=== PATIENT | male | born 1980 | race African-American/Black ===

== ENCOUNTER 2017-02-13 13:00 | Inpatient (IN) | payer OTHER ==
--- NOTE | ~2017-02-13 | PA ---
Unit #: [id number] #: [id number] Patient: SHARLA CHAND [id number] [facility] [address] [place] [address] [id number] MR#: [id number] NAME: SHARLA CHAND. ROOM: P115 Age: 36 Sex: M Admission Date: 02/13/2017 : 1980 Date of Assessment: Attending Physician: Jeffery Gonzalez M.D. Admitting Physician: Jeffery Gonzalez M.D. PSYCHIATRIC ASSESSMENT DATE OF SERVICE 02/13/2017. IDENTIFYING DATA Mr. Chand is a 36-year-old male, who is a resident of [place], [place], and was self-referred to the hospital on a voluntary basis. CHIEF COMPLAINT "I need detox services." HISTORY OF PRESENT ILLNESS Mr. Chand is a 36-year-old male, who came to the hospital stating that for the past 2 to 3 years he has been consuming half a gram of heroin a day and 2 to 3 beers and Xanax bars and that three days ago, a friend came over and he tried crack cocaine for the first time, that he is ready to get clean and stated that he has not used anything in the last 3 days and he cannot recall significant sobriety. Upon evaluation by me, the patient was seen to be in no acute distress or discomfort. He was dry heaving and had a vomit tray and has already received the injections of Phenergan, but has not been able to feel better and does report increasing depression, anxiety, irritability, restlessness, feelings of hopelessness and helplessness, but denies any suicidal ideations, intent, or plan. SUBSTANCE ABUSE HISTORY The patient reports history of alcohol, cocaine, opioids, amphetamines, and benzodiazepine abuse, and currently, he reports opioids to be his drug of choice. PAST PSYCHIATRIC HISTORY The patient has not had any prior inpatient or outpatient psychiatric treatment. Review of the medical records indicate that currently he is not active in treatment program, is not seeing a psychiatrist, and is not taking any psychotropic medications. PAST MEDICAL HISTORY No acute or chronic medical illnesses. ALLERGIES Tramadol and latex. CURRENT MEDICATIONS None. Unit #: [id number] #: [id number] Patient: SHARLA CHAND PERSONAL AND SOCIAL HISTORY A 36-year-old male, who reports that he is single, unemployed, and essentially homeless and has poor social support system. MENTAL STATUS EXAMINATION Young male who was casually dressed with fair personal hygiene, appears to be in no acute distress or discomfort. He was awake and alert on interaction with intact orientation. His mood was anxious and depressed with a congruent affect. His speech was slow and restricted in content. His thought processes were disorganized with some looseness of associations and flight of ideas. He denies any suicidal or homicidal ideations. His insight and judgment significantly impaired. DIAGNOSTIC IMPRESSION Psychiatric: Opioid dependence, moderate and acute withdrawals; alcohol dependence, moderate and acute withdrawals; benzodiazepine abuse, moderate; alcohol-induced mood disorder. Medical: None. Stressors: Moderate psychosocial stressors. TREATMENT PLAN 1. The patient has presented with a history of mood disorder and substance abuse and has been decompensating and will need inpatient hospitalization for safety and stabilization. We will start him back on his home medications. We will adjust the medications and monitor response. 2. Supportive therapy was provided to the patient. 3. Safe, structured, and nourishing environment will be provided. ESTIMATED LENGTH OF STAY 4 to 5 days. ABILITY TO HELP SELF Limited. WILLINGNESS TO HELP SELF The patient appears to be willing to help self. STRENGTHS 1. Communicative. 2. Cooperative. PROBLEMS 1. Chronic dysphoric symptoms. 2. Chronic chemical dependency. 3. Poor social support system. DISCHARGE CRITERIA This will be contingent upon the patient's ability to show resolution of his depression and anxiety and his ability to go through detox without having any significant withdrawal symptoms as well as his ability to stay safe and sober, particularly after discharge from the hospital. Dictated by... Silvestre Colby/montyl Unit #: [id number] #: [id number] Patient: JUSTIN CHANDAlexandria Zelaya TD: 02/14/2017 23:46 JOB #: [id number] PSYCHIATRIC ASSESSMENT Page 1 of 1 X Jeffery Gonzalez MD PSYCHIATRIC ASSESSMENT
--- NOTE | ~2017-02-13 | HP ---
Unit #: [id number] #: [id number] Patient: SHARLA CHAND [id number] [place] [address] [id number] I MR#: [id number] NAME: SHARLA CHAND. ROOM: P115 Age: 36 Sex: M Admission Date: 02/13/2017 : 1980 Attending Physician: Jeffery Gonzalez M.D. Admitting Physician: Jeffery Gonzalez M.D. Primary Care Physician: Generic Doctor Not In System HISTORY AND PHYSICAL HISTORY OF PRESENT ILLNESS Patient is a 36-year-old male admitted to [address] [place] [address] on 02/13/2017 for polysubstance abuse. PAST MEDICAL HISTORY Significant for polysubstance abuse including heroin. He also smokes 1/2 pack of cigarettes daily. PAST SURGICAL HISTORY Hernia repair. SOCIAL HISTORY He is unemployed. He lives alone. He smokes 1/2 pack of cigarettes daily and uses a 1/2 gram of heroin per day. He also has a history of abusing other substances but none on a daily basis. FAMILY MEDICAL HISTORY Noncontributory. ALLERGIES NSAIDS. CURRENT MEDICATIONS Patient is not on any home medications. REVIEW OF SYSTEMS CONSTITUTIONAL: No fever or chills. HEENT: Denies any sore throat, ear pain or runny nose. CARDIOVASCULAR: Denies chest pain, irregular heart rhythm or palpitations. CHEST: Denies shortness of breath or cough. No hemoptysis. GASTROINTESTINAL: Denies nausea, vomiting, diarrhea or chronic constipation. ENDOCRINE: Denies history of increased thirst or urination. No recent significant weight loss or gain. GENITOURINARY: Denies dysuria, frequency, or hematuria. SKIN: Denies any rashes. HEMATOLOGIC: Denies history of increased bleeding or bruising. MUSCULOSKELETAL: Denies any hot, swollen joints. No generalized muscle pain. NEUROLOGIC: Denies problems with vision or speech. No frequent, severe headaches. No numbness, tingling or weakness in any extremities. Denies loss of bladder or bowel control. Unit #: [id number] #: [id number] Patient: SHARLA CHAND PHYSICAL EXAM GENERAL: He is awake, alert and oriented in no acute distress. VITAL SIGNS: Temperature 99.2, heart rate 82, respiration 16, blood pressure 118/76. HEIGHT: 6'0". WEIGHT: 195 pounds. SKIN: Warm and dry without rash or lesion. HEENT: Normocephalic. TMs not viewed. Oral and nasal passages clear. Conjunctivae clear. PERRLA. EOMs intact. NECK: Supple without lymphadenopathy or thyromegaly. HEART: Regular rate and rhythm without murmur. LUNGS: Clear. ABDOMEN: Soft, nontender. : Not done. EXTREMITIES: No evidence of cyanosis, clubbing or edema. Moves all without focal deficit. NEUROLOGICAL: Grossly within normal limits. Cranial Nerves: II: Visual smith are intact. III, IV AND : Extraocular movements are intact. Pupils are equal, round and reactive to light. V: Facial sensation is grossly normal. VII: Facial movements and expression are normal. VIII: Auditory acuity grossly intact. IX, X: Uvula is midline. Phonation is normal. XI: Patient shrugs shoulders and turns head normally. XII: Tongue protrudes in the midline. Sensory and Motor Function: Sensory and motor sensation is grossly normal. Motor: moves all extremities well. IMPRESSION 1. Psychiatric admission. 2. Polysubstance use. 3. Nicotine dependence. RECOMMENDATIONS Psychiatric per psychiatrist. MEDICAL: No contraindication to participate in facility activities. MEDICAL PROGNOSIS Good. MEDICAL CONDITION Stable. Dictated by... Eli Angela/carol TD: 02/15/2017 01:34 JOB #: [id number] Unit #: [id number] #: [id number] Patient: SHARLA CHAND HISTORY AND PHYSICAL Page 1 of 1 X KYRIE ROJAS APRN HISTORY AND PHYSICAL
--- NOTE | ~2017-02-13 | PN ---
Unit #: [id number] #: [id number] Patient: SHARLA CHAND [id number] [facility] [address] [place] [address] [id number] I MR#: [id number] NAME: SHARLA CHAND. ROOM: P211 Age: 36 Sex: M Admission Date: 02/13/2017 : 1980 Attending Physician: Jeffery Gonzalez M.D. Admitting Physician: Jeffery Gonzalez M.D. Primary Care Physician: Generic Doctor Not In System [facility] PROGRESS NOTES DATE OF SERVICE 02/14/2017 DISCUSSION Mr. Chand is a 36-year-old male with substance abuse and mood disorder who was seen today. Chart was reviewed and case was discussed with the staff. He was seen to be in acute distress or discomfort as he has been actively vomiting and has been receiving detox medication but has not been able to find much relief. Meanwhile, he has been maintaining positive attitude towards treatment. MENTAL STATUS EXAMINATION Young male who is casually dressed with fair personal hygiene, appears to be in distress or discomfort. He was awake and alert with intact orientation. Mood is anxious with congruent affect. He denies any suicidal or homicidal ideations. His insight and judgment remain slightly impaired. TREATMENT PLAN 1. We will continue him on his current medications and treatment protocol. We will monitor his response to the medications and make further adjustments as needed. 2. We will continue to follow up. Dictated by... Jeffery Gonzalez M.D. IAA/bzg TD: 02/16/2017 10:30 JOB #: [id number] Unit #: [id number] #: [id number] Patient: SHARLA CHAND [facility] PROGRESS NOTES Page 1 of 1 X Jeffery Gonzalez MD X PROGRESS NOTE
--- NOTE | ~2017-02-13 | PN ---
Unit #: [id number] #: [id number] Patient: SHARLA CHAND [id number] [facility] [address] [place] [address] [id number] I MR#: [id number] NAME: SHARLA CHAND ROOM: P211 Age: 36 Sex: M Admission Date: 02/13/2017 : 1980 Attending Physician: Jeffery Gonzalez M.D. Admitting Physician: Jeffery Gonzalez M.D. Primary Care Physician: Generic Doctor Not In System [facility] PROGRESS NOTES DATE OF SERVICE: 02/15/2017 SUBJECTIVE Mr. Chand is a 36-year-old male, who was seen today and chart was reviewed, and case was discussed with the staff. He remains anxious, withdrawn, in no acute distress or discomfort. Meanwhile, he has been taking the medications and tolerating them fairly well with no reported side effects. MENTAL STATUS EXAMINATION Young male, who was casually dressed with fair personal hygiene, appears to be in no acute distress or discomfort. He was awake and alert with impaired attention and concentration. His mood was anxious with a congruent affect. His speech was slow and tangential. His thought processes were disorganized with some looseness of associations. His insight and judgment remain significantly impaired. TREATMENT PLAN 1. We will continue his current medications and treatment protocol. We will monitor his response to medications and make further adjustments as needed. 2. We will continue to follow up. Dictated by... Silvestre Colby/britt TD: 02/17/2017 02:20 JOB #: [id number] [facility] PROGRESS NOTES Page 1 of 1 X Jeffery Gonzalez MD X PROGRESS NOTE
--- NOTE | ~2017-02-13 | CO ---
Unit #: [id number] #: [id number] Patient: SHARLA CHAND [id number] [place] [address] [id number] I MR#: [id number] NAME: SHARLA CHAND ROOM: P211 Age: 36 Sex: M Admission Date: 02/13/2017 : 1980 Attending Physician: Jeffery Gonzalez M.D. Primary Care Physician: Generic Doctor Not In System Consultation Date: 02/15/2017 CONSULTATION REPORT Ordering provider is Dr. Gonzalez. REASON FOR CONSULTATION Elevated temperature. SUBJECTIVE The patient reports that he feels fine. He denies any symptoms. Denies cough, sore throat, and overall feeling poorly. OBJECTIVE Fever max out at 102. He was given Tylenol and it went down to 99.5. His examination was otherwise unremarkable. ASSESSMENT Fever. PLAN Plan is to continue the Tylenol as needed. If the patient starts having symptoms, he is advised to let nursing know. Dictated by... Eli Angela/britt TD: 02/15/2017 17:39 JOB #: [id number] CONSULTATION REPORT Page 1 of 1 X KYRIE ROJAS APRN CONSULTATION REPORT
[~2017-02-13 13:00] MED LIST: FLEXERIL10 MG PO; KETOPROFEN PO; MEDROL PO; SEROQUEL PO
[2017-02-14 13:08] LABS: ALBUMIN SERUM 3.9 g/dL (3.5-5.0); BILIRUBIN,TOTAL 0.8 mg/dL (0.2-2.0); BUN/CREATININE RATIO 9.09; CALCIUM SERUM 9.6 mg/dL (8.4-10.2); CREATININE SERUM 1.1 mg/dL (0.6-1.4); GLOM FILT RATE Estimated 100.3 mL/min (>60); POTASSIUM 4.5 mmol/L (3.5-5.1); PROTEIN TOTAL SERUM 7.2 g/dL (6.0-8.3)
[2017-02-14 13:28] LABS: BASOPHIL% 0.3 % (0-2.5); EOSINOPHIL% 0.3 % (0.0-7.0); HEMATOCRIT 38.5 % (38.0-50.0); HEMOGLOBIN 12.9 gm/dL (13.0-16.0); LYMPHOCYTE# 1.3 X10e3 (1.0-3.5); LYMPHOCYTE% 12.1 % (17.0-45.0); MEAN CELL VOLUME 83.2 FL (83-96); MEAN CORPUSCULAR HGB CONC 33.6 g/dL (30-36); MEAN PLATELET VOLUME 9.2 FL (6.5-11.5); MONOCYTE# 0.7 X10e3 (0-1.0); MONOCYTE% 6.2 % (3.0-12.0); NEUTROPHIL% 81.1 % (40-75); PLATELET COUNT 334 X10e3 (140-420); RED BLOOD COUNT 4.63 X10e (3.90-5.60); RED CELL DISTRIBUTION WIDTH 14.8 % (11.0-15.5); WHITE BLOOD COUNT 11.1 X10e3 (4.0-10.5)
[2017-02-14 13:33] LABS: DIFF IND NO
[2017-02-16 16:46] LABS: URINE APPEARANCE CLEAR; URINE BILIRUBIN NEG (NEG); URINE BLOOD NEG (NEG); URINE COLOR YELLOW; URINE GLUCOSE NEG (NEG); URINE KETONE NEG (NEG); URINE LEUKOCYTE ESTERASE NEG (NEG); URINE NITRATE NEG (NEG); URINE PROTEIN NEG (NEG); URINE SPECIFIC GRAVITY 1.004 (1.003-1.035); URINE UROBILINOGEN 0.2 MG/DL (NEG)
[2017-02-16 16:57] LABS: AMPHETAMINE NEG (NEG); BARBITURATES NEG (NEG); BENZODIAZEPINES NEG (NEG); COCAINE NEG (NEG); MARIJUANA NEG (NEG); OPIATES NEG (NEG); TRICYCLIC ANTIDEPRESSANTS NEG (NEG); U METHADONE NEG (NEG)
== END 2017-02-16 15:02 | disposition left against medical advice (07) | DRG 894 ==
LOC: P2S 16:40 → P1E 16:40 → P1S 16:40 → P2S 02-15 14:41
PROVIDERS: Psychiatry & Neurology Psychiatry
PROC: HZ2ZZZZ Detoxification Services for Substance Abuse Treatment (ICD-10-PCS; principal; 2017-02-13)
DX: F11.23 Opioid dependence with withdrawal (principal); F10.239 Alcohol dependence with withdrawal, unspecified; F10.24 Alcohol dependence with alcohol-induced mood disorder; Z88.8 Allergy status to other drugs, medicaments and biological substances; Z91.040 Latex allergy status; F17.210 Nicotine dependence, cigarettes, uncomplicated; R50.9 Fever, unspecified
CPT/HCPCS: 80053; 80307; 81003; 85025; 87651; J2550